=== PATIENT | female | born 1950 | race Caucasian/White ===

== ENCOUNTER → 2017-06-10 | Outpatient (CLI) | payer BC ==
[~2017-06-10] MED LIST: ASPI81TA28 PO; CALC-392 PO; CHOL100010 PO; MULT1CAP16 PO; TAMO20TA5 PO
--- NOTE | 2017-06-10 13:08 | MAMMOGRAPHY REPORT ---
BILATERAL DIGITAL DIAGNOSTIC MAMMOGRAM TOMOSYNTHESIS WITH CAD: 06/10/2017 CLINICAL HISTORY: 66-year-old woman with a personal history of right breast cancer status post breast conservation treatment. Numerous bilateral breast calcifications. TECHNIQUE: Bilateral breast tomosynthesis in addition to standard 2D mammography was performed. Curre nt study was also evaluated with a Computer Aided Detection (CAD) system. COMPARISON: Comparison is made to exams dated: 06/03/2016 mammogram, 12/11/2015 mammogram, 05/29/2015 mammogram, 05/29/2015 ultrasound, 11/10/2014 mammogram, and 05/12/2014 mammogram - [facility]. BREAST COMPOSITION: There are scattered areas of fibroglandular density in both breasts. FINDINGS: There is expected architectural distortion in the 6:00 middle one third of the right breast , at the site of prior lumpectomy. Surgical clips also remain in place. There are stable benign cir cumscribed oval masses in the medial right breast. Diffuse benign-appearing punctate, round and rim calcifications. No new suspicious mass, architectural distortion or cluster of suspicious microcalci fications is seen bilaterally. IMPRESSION: ACR BI-RADS CATEGORY 2: BENIGN Stable bilateral mammograms, without mammographic evidence of malignancy. Bilateral tomosynthesis ma mmography is recommended in one year, and would also recommend remaining a diagnostic patient, given the personal history of right breast cancer, in case any additional mammographic views and/or ultraso und may be needed. The patient has been verbally notified of the results. Approximately 10% of breast cancers are not detected with mammography. A negative mammographic report should not delay biopsy if a clinically suggestive mass is present. Maribell Andrade M.D. ay/:06/10/2017 10:36:10 Ladle Liner: Argelia Ruiz, [facility] letter sent: Normal 1/2 BI-RADS Code: ACR BI-RADS Category 2: Benign
== END | disposition home or self-care (01) ==
LOC: C.MAMM 10:00
PROVIDERS: ATTEND Surgery
DX: R92.0 Mammographic microcalcification found on diagnostic imaging of breast (principal); Z85.3 Personal history of malignant neoplasm of breast